=== PATIENT | female | born 1965 | race Caucasian/White ===

== ENCOUNTER → 2017-12-16 06:09 | Outpatient (CLI) | payer MEDICARE, MEDICAID, SELFPAY ==
--- NOTE | 2017-12-16 06:12 | NM_ITS ---
History and Indications: Status post pacemaker, family history, chest pain, shortness of breath, palpitations, syncope and fatigue Procedure: Patient received a 0.4 mg of intravenous Lexiscan, resting heart rate was 70 beats per resting blood pressure 150/86, with Lexiscan maximum heart rate achieved was 87 bpm which is less than 85% of the maximum predicted heart rate and a blood pressure was 134/77. With Lexiscan patient complained of chest pressure and shortness of breath. Electrocardiogram: Resting electrocardiogram showed sinus rhythm left atrial enlargement, with Lexiscan there is less than 1.[address] segment depression noted from the baseline EKG. The EKG portion of the Lexiscan Myoview is nondiagnostic. Cardiac stress and resting SPECT images: Cardiac stress and resting SPECT images were obtained using technetium 99 Myoview 29.7 mCi stress and 10.4 mCi at rest gated SPECT further analysis of segmental wall motion and calculation of the ejection fraction also done. Cardiac stress and rest SPECT images show uniform myocardial activity without segmental perfusion abnormality, computer derived ejection fraction is 55% with no regional wall motion abnormality, right ventricle is normal size and contractility. Conclusion: 1. The EKG portion of the Lexiscan Myoview is nondiagnostic. 2. No scintigraphic evidence of reversible ischemia seen, greater derived ejection fraction 55% with no regional wall motion abnormality, right ventricle is normal size and contractility. 3. Normal Lexiscan Myoview study.
--- NOTE | 2017-12-16 06:12 | CA_ITS ---
PROCEDURE: 2-D M-mode and color Doppler study INDICATIONS FOR THE TEST: Chest pain + COPD Heart Murmur Tobacco Smoking Palpitations+ Fatigue Syncope Edema+ Hypertension Diabetes Mellitus Rheumatic Fever SOB+RIVAS Obesity Hyperlipidemia+ Family History HD Additional History AFIB, PACER, HX OF GASTRIC BYPASS PATIENT INFORMATION HEIGHT: 64 WEIGHT:220 GENDER: Female B/P:102/68 2-D/M-MODE INTERPRETATION: 2-D MEASUREMENTS OBSERVED VALUES IN CMS Right Ventricular Dimension (RVDd) 2.3 Interventricular Septum (Thickness)(IVsd) 1.0 Left Ventricular Internal Dimensions(LVIDd) 4.8 Left Ventricular Posterior Wall (Thickness)(LVPWd) 0.8 Aortic Root 2.9 Aortic Cusp Separation 2.0 Left Atrial Dimensions (LAD) 4.9 2D 1. Left atrium is mildly enlarged, left ventricle is normal size, there is no concentric left ventricular hypertrophy, visually estimated ejection fraction 55% with no regional wall motion abnormality. 2. The right atrium and right ventricle are mildly enlarged with normal contractility. There is a pacemaker lead seen in the right atrium and right ventricle. 3. The aortic valve is minimally thickened and fibrosed. 4. The mitral and tricuspid valves are grossly normal. 5. The pulmonic valve is poorly visualized. 6. No significant Pericardial effusion noted. DOPPLER INTERROGATION: Doppler interrogation of the aortic, mitral and tricuspid valvular mild mitral and tricuspid regurgitation, calculated right ventricular systolic pressure is 47 mmHg consistent with moderate pulmonary hypertension, diastolic parameters are within normal range. CONCLUSION: 1. Mildly enlarged left atrium, normal left ventricular size, visually estimated ejection fraction 55% with no regional wall motion abnormality, diastolic parameters are within normal range. 2. Mild mitral and tricuspid regurgitation, calculated right ventricular systolic pressure is 47 mmHg consistent with moderate pulmonary hypertension. 3. No significant pericardial effusion noted.
--- NOTE | 2017-12-16 07:15 | HMH.ITSHM ---
Current Home Medications as stated by this patient Asia Burt or mechanical service representative. []TRAMODOL LASIX POTASSIUM ASA VITAMIN D
[2017-12-16 10:45] LABS: Alanine Aminotransferase 21 U/L (12-78); Albumin Level 3.8 gm/dL (3.4-5.0); Alkaline Phosphatase 116 U/L (46-116); Aspartate Amino Transferase 15 U/L (15-37); Bilirubin,Direct 0.1 mg/dL (0.0-0.2); Bilirubin,Indirect 0.4 mg/dL (0.0-0.9); Bilirubin,Total 0.5 mg/dL (0.2-1.0); Total Protein,Serum 7.1 gm/dL (6.4-8.2)
== END ==
PROVIDERS: Urology; PCP Nurse Practitioner Family; Visit Provider Internal Medicine
DX: E66.9 Obesity, unspecified (principal); I48.0 Paroxysmal atrial fibrillation; R00.2 Palpitations; R06.00 Dyspnea, unspecified; R07.9 Chest pain, unspecified; R60.9 Edema, unspecified; Z95.0 Presence of cardiac pacemaker; Z98.84 Bariatric surgery status; E78.49 Other hyperlipidemia
CPT/HCPCS: 36415; 78452; 80076; 93017; 93306; A9502; J2785

== ENCOUNTER → 2017-12-27 07:57 | Outpatient (CLI) | payer MEDICARE, MEDICAID, SELFPAY ==
--- NOTE | 2017-12-27 07:59 | CI_ITS ---
Cerebrovascular Exam Indications: 785.9 Bruit. IMPRESSIONS 1. The bilateral vertebral arteries are patent with normal antegrade flow. 2. Study suggests less than 20% stenosis involving the right internal carotid artery and the left internal carotid artery. Carotid duplex study. Complete study and Doppler flow study including spectral analysis, color and herbert scale imaging. Height: Height: 157.5cm. Height: 62in. Weight: Weight: 99.8kg. Weight: 219.5lb. Body mass index: BMI: 40.2kg/m^2. Body surface area: BSA: 2.14m^2. Location: Vascular laboratory. Patient status: Outpatient. Tables: Arterial flow: + +--------+--------+ Location V sys V ed + +--------+--------+ Right CCA - proximal 85.6cm/s 27.5cm/s + +--------+--------+ Right CCA - distal 75.4cm/s 25.1cm/s + +--------+--------+ Right ECA 65.2cm/s -------- + +--------+--------+ Right ICA - proximal 58.9cm/s 19.6cm/s + +--------+--------+ Right ICA - mid 87.2cm/s 33.8cm/s + +--------+--------+ Right ICA - distal 93.5cm/s 37.7cm/s + +--------+--------+ Right vertebral 40.1cm/s -------- + +--------+--------+ Left CCA - proximal 69.9cm/s 22cm/s + +--------+--------+ Left CCA - distal 63.6cm/s 21.2cm/s + +--------+--------+ Left ECA 72.3cm/s -------- + +--------+--------+ Left ICA - proximal 80.1cm/s 28.3cm/s + +--------+--------+ Left ICA - mid 88cm/s 39.3cm/s + +--------+--------+ Left ICA - distal 69.1cm/s 31.4cm/s + +--------+--------+ Left vertebral 29.9cm/s -------- + +--------+--------+ Velocity ratios: + + + + + + Right, V sys Right, V ed Left, V sys Left, V ed + + + + + + Max ICA/dist CCA 1.24 1.5 1.38 1.85 + + + + + + (Report amended ) Electronically signed by: Gregory Vasques [id number]
== END ==
PROVIDERS: PCP Nurse Practitioner Family; Visit Provider Urology
DX: R09.89 Other specified symptoms and signs involving the circulatory and respiratory systems (principal); R00.2 Palpitations; R06.02 Shortness of breath
CPT/HCPCS: 93880

== ENCOUNTER → 2018-02-25 12:55 | Outpatient (CLI) | payer MEDICARE, MEDICAID, SELFPAY | PROVIDERS: PCP Nurse Practitioner Family; Visit Provider Urology | DX: G47.9 Sleep disorder, unspecified (principal); R06.83 Snoring; R40.0 Somnolence; G47.33 Obstructive sleep apnea (adult) (pediatric) | CPT/HCPCS: G0399 ==